=== PATIENT | female | born 1975 | race Caucasian/White ===

== ENCOUNTER 2018-11-11 10:40 | Emergency (ER) | payer OTHER ==
[2018-11-11 11:41] VITALS: BP 140/94
--- NOTE | 2018-11-11 12:13 | UC ---
Hand/Wrist HPI - HPI Summary HPI Summary: 42 yo female presents with LEFT wrist pain. She tells me that this morning she slipped on the ice and landed on the ulnar aspect of her left wrist. She is right handed. Since that time has had pain. She has been applying ice. She is concerned there might be a broken bone. Has some intermittent tingling up into her pinky and ring fingers. - History Of Current Complaint Chief Complaint: UCUpperExtremity Stated Complaint: WRIST INJURY Time Seen by Provider: 11/11/18 12:13 Hx Obtained From: Patient Hx Last Menstrual Period: 11/04/18 Onset/Duration: Sudden Onset Severity Initially: Mild Severity Currently: Mild Pain Intensity: 4 Pain Scale Used: 0-10 Numeric - Allergies/Home Medications Allergies/Adverse Reactions: Allergies Allergy/AdvReac Type Severity Reaction Status Date / Time morphine Allergy See Comment Verified 11/11/18 11:41 oseltamivir [From Tamiflu] Allergy Vomiting Verified 11/11/18 11:41 Home Medications: Home Medications ALPRAZolam [Xanax] 0.25 mg PO QPM PRN 11/11/18 [History Confirmed 11/11/18] Mirtazapine [Remeron] 7.5 mg PO QPM 11/11/18 [History Confirmed 11/11/18] Zolpidem Tartrate [Ambien] 10 mg PO QPM PRN 11/11/18 [History Confirmed 11/11/18 ] PMH/Surg Hx/FS Hx/Imm Hx Endocrine History: Hypothyroidism Psychological History: Anxiety, Depression, Bipolar Disorder - Surgical History Surgical History: Yes Surgery Procedure, Year, and Place: appendectomy 1997 - Family History Known Family History: Positive: None - Social History Occupation: Employed Full-time Lives: With Family Alcohol Use: Daily Substance Use Type: None Smoking Status (MU): Never Smoked Tobacco Review of Systems All Other Systems Reviewed And Are Negative: Yes Constitutional: Positive: Negative Skin: Positive: Negative Respiratory: Positive: Negative Cardiovascular: Positive: Negative Gastrointestinal: Positive: Negative Neurovascular: Positive: Negative Musculoskeletal: Positive: Other: - Left wrist pain Neurological: Positive: Negative Psychological: Positive: Negative Physical Exam - Summary Physical Exam Summary: GENERAL: NAD. WDWN. No pain distress. SKIN: No rashes, sores, lesions, or open wounds. CHEST: No accessory muscle use. Breathing comfortably and in no distress. CV: Pulses intact radial and ulnar. Cap refill <2seconds MSK: LEFT WRIST: Mild TTP over ulnar styloid. FROM with mild pain during flexion. 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 No edema or obvious bony deformities. No snuffbox tenderness. NEURO: Alert. Sensations intact hand and all fingers. PSYCH: Age appropriate behavior. Triage Information Reviewed: Yes Vital Signs: Initial Vital Signs Temp 98.1 F 11/11/18 11:37 Pulse 70 11/11/18 11:37 Resp 18 11/11/18 11:37 BP 140/94 11/11/18 11:37 Pulse Ox 100 11/11/18 11:37 Vital Signs Reviewed: Yes Hand/Wrist Course/Dx - Course Course Of Treatment: XR: IMPRESSION: NO ACUTE OSSEOUS INJURY. IF SYMPTOMS PERSIST, RECOMMEND REPEAT IMAGING. Suspect sprain vs contusion. Pt placed in a cock-up brace and advised to RICE. F/u if symptoms do not improve. - Differential Dx/Diagnosis Provider Diagnosis: Left wrist sprain Discharge - Sign-Out/Discharge Documenting (check all that apply): Patient Departure All imaging exams completed and their final reports reviewed: Yes - Discharge Plan Condition: Stable Disposition: HOME Patient Education Materials: Wrist Sprain (ED) Referrals: Rahat Wright MD [Primary Care Provider] - Additional Instructions: If you develop a fever, shortness of breath, chest pain, new or worsening symptoms - please call your PCP or go to the ED. Your blood pressure was high at todays visit. Please see your primary provider within 4 weeks for recheck and re-evaluation. 1) Rest, Ice, and elevate your wrist as much as possible 2) Use the wrist brace for comfort and protection 3) If your symptoms do not improve in a few days - please be rechecked - Billing Disposition and Condition Condition: STABLE Disposition: Home
== END 2018-11-11 12:36 | disposition home or self-care (01) ==
LOC: UCEAST 10:40
DX: S63.502A Unspecified sprain of left wrist, initial encounter (principal); W00.0XXA Fall on same level due to ice and snow, initial encounter; Y92.9 Unspecified place or not applicable; F41.9 Anxiety disorder, unspecified; F31.9 Bipolar disorder, unspecified; Z88.5 Allergy status to narcotic agent; Z88.8 Allergy status to other drugs, medicaments and biological substances
CPT/HCPCS: 99212; G0463